=== PATIENT | female | born 2000 | race Two or more races ===

== ENCOUNTER → 2024-10-01 | Outpatient (CLI) | payer MEDICAID, SELFPAY ==
--- NOTE | 2024-10-01 15:45 | XR_ITS ---
Examination: Breast ultrasound complete, bilateral Date and time of exam: October 01, 2024 1542 hours INDICATIONS: Bilateral breast pain beginning one year ago Technique: Real-time grayscale ultrasonographic imaging bilateral breasts, including all 4 quadrants as well as nipple retroareolar and axillary regions. Findings: No cystic or solid mass involving either breast Dilated ducts throughout both breasts IMPRESSION: BI-RADS Category 2: Benign findings
== END | disposition home or self-care (01) ==
PROVIDERS: PCP Obstetrics & Gynecology; Referring Provider Obstetrics & Gynecology; Visit Provider Obstetrics & Gynecology
DX: N64.4 Mastodynia (principal)
CPT/HCPCS: 76641

== ENCOUNTER 2024-10-18 15:00 | Emergency (ER) | payer MEDICAID, SELFPAY ==
[2024-10-18 15:01] VITALS: BMI 22.3
[2024-10-18 15:57] VITALS: BP 111/68; PULSE 77; RESP 18; TEMP 36.9; O2SAT 99
--- NOTE | 2024-10-18 16:12 | EDNOTE_ITS ---
ED General RME/HPI General Chief complaint: General Adult/Misc Complain Stated complaint: IRENE. BREAST PAIN FOR A COUPLE MONTHS Time Seen by Provider: 10/18/24 15:46 Source: patient Arrival date/time: 10/18/24 15:00 23-year-old female here in emergency department due to complaints of bilateral breast pain reports her pain has been intermittent for the last 2 years. Worsening the last couple of months. Reports has been following up with her doctor has had test and ultrasounds which all seem to be reassuring. Here for pain management. Mode of arrival: ambulatory Limitations: no limitations Related Data Home Medications ?Medication ?Instructions ?Recorded ?Confirmed prenat.vits,ezio,tin-[id number] 1 tab PO QDAY 02/01/22 05/11/22 Previous Rx's ?Medication ?Instructions ?Recorded benzocaine 20 %-menthol 0.5 % 1 spray topical TID #56 pumps 05/11/22 topical aerosol (Dermoplast (with menthol)) docusate sodium 100 mg capsule 100 mg PO BID #60 caps 05/11/22 (Colace) ibuprofen 800 mg tablet 800 mg PO Q6H PRN pain #90 t abs 05/11/22 lanolin 50 % topical ointment 1 applic topical TID PRN skin 05/11/22 irritation #15 tubes Allergies Allergy/AdvReac Type Severity Reaction Status Date / Time No Known Allergies Allergy Verified 10/18/24 15:00 Review of Systems Review of Systems Systems Reviewed: All systems reviewed, normal except as documented Narrative Review of Systems: Gen: No fever, no chills, no weight loss EYES: No discharge, no visual changes, no pain HEENT: No ear pain, no congestion, no sore throat PULM: No shortness of breath, no cough, no congestion CV: No chest pain, no dyspnea on exertion, no palpitations GI: No nausea, no vomiting, no diarrhea, no pain, no constipation : No frequency, no urgency, no dysuria Musc/skel: No joint pain, no back pain Skin: No rash Psyc: No hallucinations, no depression Heme/Lymph: No easy bleeding or bruising tendencies Neuro: No weakness, no headache ED Exam General Limitations: Present no limitations General appearance: Present alert and in no apparent distress Head Head exam: Present atraumatic Eye Eye exam: Present normal appearance, PERRL and EOMI ENT ENT exam: Present normal exam, normal oropharynx and mucous membranes moist Neck Neck exam: Present normal inspection, full ROM and trachea midline Chest Chest inspection: Present normal inspection and symmetric chest wall rise Expanded Chest Exam Trauma: Present other (Normal breast exam) Respiratory Respiratory exam: Present normal lung sounds bilaterally Cardiovascular Cardiovascular exam: Present regular rate, normal rhythm and normal heart sounds Abdominal Exam Abdominal exam: Present soft and normal bowel sounds Extremities Exam Extremities exam: Present normal inspection and full ROM Back Exam Back exam: Present normal inspection and full ROM Neurological Exam Neurological exam: Present alert, oriented X3 and CN II-XII intact Psychiatric Psychiatric exam: Present normal affect and normal mood Skin Skin exam: Present warm, dry, intact and normal color Course Quality Measures none Vital Signs Vital signs: Vital Signs Temperature 98.5 F 10/18/24 15:57 Pulse Rate 77 10/18/24 15:57 Respiratory Rate 18 10/18/24 15:57 Blood Pressure 111/68 10/18/24 15:57 Pulse Oximetry (%) 99 10/18/24 15:57 Oxygen Delivery Method Room Air 10/18/24 15:57 [facility] Patient data External records reviewed:: [facility] previous records Clinical information provided by:: patient Social determinants that could affect healthcare access:: none Patient has the following chronic illnesses:: None How is presenting disease/condition affected by chronic disease/condition?: no chronic disease Evaluation data The following diagnostics were reviewed and interpreted by me:: radiology exam(s) and other (specify) Lab and/or radiology exams considered but not ordered:: Ultrasound breast however patient had 1 last week Interpretation Summary: Not applicable Medications Medications considered but not ordered:: No Medication administrations:: No Consultations Consultation(s) initiated? (list below): No Diagnosis Differential Diagnosis ED Complaint MDM: Breast pain Most likely diagnosis given after review of the tests above:: [place] Admission Indicated Admission indicated?: not indicated Explain why admission is indicated or not indicated:: None Admission Request Was there a request for admission?: No Disposition Plan Disposition Plan: Discharge Discharge Attestation Discharge Attestation: The patient and all family members were given an opportunity to ask questions and understood the discharge instructions. Discharge instructions specifically effects, indications for sooner follow up or return to the emergency department, and the expected course of current diagnosis. Patient condition: Stable Medical Decision Making Differential Diagnosis Differential Diagnosis: Breast pain Discharge Plan Plan Patient Disposition: HOME (Self Care) Patient condition on transfer: Stable Prescriptions/Referrals Prescriptions/Med Rec: No Action prenat.vits,ezio,[id number] Tablet 1 tab PO QDAY Dermoplast (with menthol) 20-0.5 % aerosol 1 spray topical TID Qty: 56 0RF docusate sodium [Colace] 100 mg capsule 100 mg PO BID Qty: 60 0RF ibuprofen 800 mg tablet 800 mg PO Q6H MDD 4 PRN (Reason: pain) Qty: 90 0RF lanolin 50 % ointment 1 applic topical TID PRN (Reason: skin irritation) Qty: 15 0RF Problem List Clinical Impression: Chronic breast pain Patient/Caregiver Discharge Instructions Discharge Activity: activity as tolerated Education Materials: Breast Anatomy Additional Instructions: I reviewed your ultrasound from 10/01/2024 it appears to be a normal exam. He is continue to take your naproxen you can take 1 tab in the morning 1 tab p.m. You can also alternate between Tylenol for pain. Return to the emergency department Print Language: Ukrainian Stand Alone Forms: Tash Award Info., Patient Portal Info Letter PA/NUT SHELLER MACHINE OPERATOR Supervising Physician PA/NUT SHELLER MACHINE OPERATOR Supervising Physician: moy
== END 2024-10-18 18:30 | disposition home or self-care (01) ==
LOC: SERX 16:13
PROVIDERS: Emergency Provider Family Medicine
DX: N64.4 Mastodynia (principal); G89.29 Other chronic pain
CPT/HCPCS: 99281